=== PATIENT | female | born 1955 | race Caucasian/White ===

== ENCOUNTER 2020-01-19 14:20 | Emergency (ER) | payer MEDICARE, OTHER, SELFPAY ==
--- NOTE | ~2020-01-19 | XR_ITS ---
EXAMINATION: XR wrist RT 2V INDICATION: Right wrist pain TECHNIQUE: Two views of the right wrist are obtained. COMPARISON: None available FINDINGS: Bone alignment of the wrist is normal. There is mild osteoarthritis of the triscaphe and fi rst carpometacarpal joints. A minimally displaced fracture at the base of the fifth metacarpal is not ed. IMPRESSION: 1. No acute osseous abnormality of the wrist. 2. Fifth metacarpal base fracture. Reviewed, dictated and finalized at location A.
--- NOTE | ~2020-01-19 | XR_ITS ---
EXAMINATION: XR hand RT 2V INDICATION: Right hand pain, initial encounter TECHNIQUE: Two views of the right hand are obtained. COMPARISON: None available FINDINGS: There is an acute, traumatic, closed, transverse fracture at the base of the fifth metacarp al which does not appear to involve the articular surface. There is 1 mm of dorsal displacement of th e distal fracture fragment. Soft tissue swelling is seen near the fracture. Mild osteoarthritis is no ruddy at the triscaphe and first metacarpal joints. There is also mild osteoarthritis at several interp halangeal joints. IMPRESSION: 1. Minimally displaced fracture at the base of the fifth metacarpal. Reviewed, dictated and finalized at location A.
[2020-01-19 14:44] VITALS: BP 142/82; PULSE 59; RESP 14; TEMP 36.5; O2SAT 97
[2020-01-19] MEDS: KETOROLAC (*BKC) 60 MG/2 ML VIAL IM (14:56)
--- NOTE | 2020-01-19 15:30 | ED.UPPEXIN ---
HPI - Extremity Injury (Upper) General Chief Complaint: Extremity Injury, Upper Stated Complaint: injury to right hand Source: patient Mode of arrival: ambulatory Limitations: no limitations History of Present Illness HPI narrative: this is a 64-year-old female that presents with a right hand and wrist pain after a fall earlier today on an outstretched hand causing pain and swelling on the ulnar surface of her right hand with some mild decreased range of motion secondary to pain and swelling. Has good range of motion with her fingers, with no numbness, her right radial pulse is strong and brisk to palpation. complaint: injury to: right Onset (ago): hour(s) Other Extremity Injury: Right: hand ( pain with swelling) and wrist Other injuries: none Handedness: right Place: home Severity: moderate Severity scale (1-10): 6 Relieving factors: cold therapy, immobilization and medication Exacerbating factors: movement of extremity Context: fall Associated symptoms: denies other symptoms Related Data Home Medications Medication Instructions Recorded Confirmed amlodipine 2.5 mg PO DAILY 01/19/20 01/19/20 cabergoline 0.5 mg PO WEEKLY 01/19/20 01/19/20 calcium carbonate [Calcium 600] 600 mg PO DAILY 01/19/20 01/19/20 gemfibrozil 600 mg PO BID 01/19/20 01/19/20 insulin asp prt-insulin aspart 16 unit SUBCUT AC 01/19/20 01/19/20 [Novolog Mix 70-30FlexPen U-100] insulin glargine [Lantus U-100 20 unit SUBCUT DAILY 01/19/20 01/19/20 Insulin] lisinopril 20 mg PO DAILY 01/19/20 01/19/20 methimazole 5 mg PO DAILY 01/19/20 01/19/20 omeprazole 20 mg PO DAILY 01/19/20 01/19/20 pravastatin 40 mg PO HS 01/19/20 01/19/20 vitamin B complex [B 1 tablet PO DAILY 01/19/20 01/19/20 Complex-Vitamin B12] Allergies Allergy/AdvReac Type Severity Reaction Status Date / Time No Known Allergies Allergy Unverified 05/22/18 10:17 Review of Systems Review of Systems: All systems reviewed & are unremarkable except as noted in HPI and below PMFSH Past Medical History Medical History Diabetes mellitus HLD (hyperlipidemia) HTN (hypertension) Hypothyroidism (acquired) Exam Const: General: no acute distress and alert Orientation/consciousness: patient oriented x3 HENMT: Head: normal to inspection Ears: TM abnormal Eyes: Conjunctivae: conjunctivae normal Pupils: Equal, round and reactive pupils present Neck: Neck: normal visual inspection and no lymphadenopathy Chest: Chest palpation & inspection: normal inspection of the chest Resp: Effort & Inspection: normal respiratory effort Auscultation: clear to auscultation bilaterally Cardio: Rate: regular rate Rhythm: regular rhythm GI: GI Palp: Yes Soft to palpation Auscultation: normal bowel sounds : General: Yes no CVA tenderness Skin: General skin exam: normal color Rashes: no rashes Neuro: General: patient oriented x3, moves all extremities, no meningeal signs and no focal motor deficits Extrem: Other: Pain and tenderness ulnar aspect of her right hand and risk with a strong brisk radial pulse with no numbness or tingling Psych: Mental Status: mental status grossly normal Course Vital Signs Vital signs: Vital Signs Temperature 36.5 C 01/19/20 14:44 Pulse Rate 59 L 01/19/20 14:44 Respiratory Rate 14 01/19/20 14:44 Blood Pressure 142/82 H 01/19/20 14:44 Pulse Oximetry 97 01/19/20 14:44 Temperature 36.5 C 01/19/20 14:44 Pulse Rate 59 L 01/19/20 14:44 Respiratory Rate 14 01/19/20 14:44 Blood Pressure 142/82 H 01/19/20 14:44 Pulse Oximetry 97 01/19/20 14:44 Critical Care Time Critical Care Time Critical Care Time: No Discharge Plan Discharge Clinical Impression: Fracture of hand Patient Disposition: Home, Self-Care Condition: Stable Instructions: Hand Fracture (ED), Splint Care (ED) Additional Instructions: follow-up with primary care physician within 1
[2020-01-19 15:31] VITALS: PULSE 60; RESP 14; O2SAT 98
--- NOTE | 2020-01-28 11:13 | PC.NURSE ---
01/19/20 1538 right wrist splint applied per ERP verbal order
== END 2020-01-19 15:41 | disposition home or self-care (01) ==
PROVIDERS: Emergency Provider Emergency Medicine; PCP Family Medicine
DX: S62.91XA Unspecified fracture of right hand, initial encounter for closed fracture (principal); W19.XXXA Unspecified fall, initial encounter
CPT/HCPCS: 29125; 73100; 73120; 96372; 99283; 99284; J1885

== ENCOUNTER 2021-12-19 08:12 | Outpatient (CLI) | payer MEDICARE, OTHER, SELFPAY ==
[2021-12-19 09:10] LABS: Thyroid Stimulating Hormone 0.66 uIU/mL (0.36-3.74)
== END 2021-12-19 08:13 | disposition home or self-care (01) ==
LOC: CHSLAB 08:16
PROVIDERS: PCP Family Medicine; Visit Provider Internal Medicine Endocrinology, Diabetes & Metabolism
DX: E03.9 Hypothyroidism, unspecified (principal)
CPT/HCPCS: 36415; 84443

== ENCOUNTER 2022-01-19 08:06 | Outpatient (CLI) | payer MEDICARE, SELFPAY ==
[2022-01-19 09:21] LABS: Free T3 2.66 pg/mL (2.18-3.98); Free T4 Free Thyroxine 1.32 ng/dL (0.76-1.46); Thyroid Stimulating Hormone 1.73 uIU/mL (0.36-3.74)
== END 2022-01-19 08:07 | disposition home or self-care (01) ==
LOC: CHSLAB 08:10
PROVIDERS: PCP Family Medicine; Visit Provider Internal Medicine Endocrinology, Diabetes & Metabolism
DX: E03.8 Other specified hypothyroidism (principal)
CPT/HCPCS: 36415; 84439; 84443; 84481

== ENCOUNTER 2022-05-01 06:56 | Outpatient (CLI) | payer MEDICARE, SELFPAY ==
[2022-05-01 07:17] LABS: Basophils Absolute Auto 0.07 K/mm3 (0.00-0.10); Basophils Percent Auto 1.6 % (0.0-1.0); Eosinophils Absolute Auto 0.41 K/mm3 (0.02-0.50); Eosinophils Percent Auto 9.5 % (1.0-6.0); Hematocrit 40.3 % (35.0-42.0); Hemoglobin 12.9 g/dL (11.7-13.8); Immature Granulocyte Absolute 0.01 K/mm3 (0.00-0.00); Immature Granulocyte Percent A 0.2 % (0.0-0.0); Lymphocytes Absolute Auto 0.97 K/mm3 (1.10-4.50); Lymphocytes Percent Auto 22.4 % (18.0-42.0); Mean Corpuscular Hemoglobin 29.4 pg (27.0-31.0); Mean Corpuscular Volume 91.8 fL (78.0-102.0); Mean Platelet Volume 10.4 fl (9.2-11.8); Monocytes Absolute Auto 0.55 K/mm3 (0.10-0.90); Monocytes Percent Auto 12.7 % (2.0-11.0); Neutrophils Absolute Auto 2.3 K/mm3 (1.7-7.2); Neutrophils Percent Auto 53.6 % (50.0-70.0); Platelet Count Result 222 K/mm3 (150-420); Red Blood Count 4.39 M/mm3 (4.20-5.40); Red Cell Distribution Width 14.2 % (11.6-14.4); White Blood Count 4.3 K/mm3 (4.8-10.8)
[2022-05-01 07:18] LABS: Add Urine Microscopic? YES; Appearance Urine Clear (Clear); Bilirubin Urine Negative (Negative); Blood Urine Negative (Negative); Color Urine Light Yellow (Yellow); Glucose Urine UA 3+ (Negative); Ketones Urine Trace (Negative); Leukocyte Esterase Ur Negative (Negative); Nitrate Urine Negative (Negative); Protein Urine Negative (Negative); Urobilinogen Urine 0.2 mg/dL (0.2-1.0)
[2022-05-01 07:25] LABS: Bacteria Urine None seen /hpf; RBC Urine None seen /hpf (0-2); WBC Urine None seen /hpf (0-3)
[2022-05-01 07:35] LABS: Alanine Aminotransferase 15 U/L (14-59); Albumin Level 3.5 g/dL (3.4-5.0); Alkaline Phosphatase 116 U/L (46-116); Anion Gap 8 mmol/L (8-16); Aspartate Amino Transferase 17 U/L (15-37); Bilirubin,Total 0.4 mg/dL (0.00-1.00); Blood Urea Nitrogen 34 mg/dL (7-18); Calcium 9.3 mg/dL (8.5-10.1); Carbon Dioxide 23 mmol/L (21-32); Chloride 101 mmol/L (98-108); Creatine Kinase 74 U/L (26-192); Estimated Glomerular Filt Rate 47; Glucose 354 mg/dL (70-99); Osmolality Calculated 295 mOsm/kg (285-295); Potassium 4.3 mmol/L (3.5-5.1); Sodium 132 mmol/L (136-145); Total Protein 7.4 g/dL (6.4-8.2)
[2022-05-01 08:16] LABS: Erythrocyte Sedimentation Rate 32 mm/hr (0-20)
[2022-05-04 11:31] LABS: Complement C3 162 mg/dL (83-193)
== END 2022-05-01 06:57 | disposition home or self-care (01) ==
LOC: CHSLAB 07:01
PROVIDERS: PCP Family Medicine
DX: M06.4 Inflammatory polyarthropathy (principal)
CPT/HCPCS: 36415; 80053; 81001; 82550; 85025; 85652; 86160; 86225

== ENCOUNTER 2022-05-11 11:48 | Outpatient (CLI) | payer MEDICARE, OTHER, SELFPAY ==
--- NOTE | ~2022-05-11 | US_ITS ---
EXAMINATION: US retroperitoneal comp DATE: 05/11/2022 12:14 INDICATION: Stage III chronic kidney disease. Prior right nephrectomy. TECHNIQUE: Multiple ultrasound grayscale images of the kidneys were obtained. COMPARISON: None. FINDINGS: The right kidney is not visualized and is reportedly surgically absent. No abnormal masses identified at the right renal fossa although the region is partially obscured by shadowing bowel gas. The left kidney measures 11.5 x 5.5 x 5.6 cm. Left renal cortical echogenicity is normal. No stones identified . There is no hydronephrosis in the left kidney. The bladder is normal. IMPRESSION: 1. Normal left kidney without hydronephrosis. 2. Status post right nephrectomy. Reviewed, dictated and finalized at location A.
== END 2022-05-11 11:49 | disposition home or self-care (01) ==
LOC: CHSIMG 11:49
PROVIDERS: PCP Family Medicine
DX: N18.30 Chronic kidney disease, stage 3 unspecified (principal)
CPT/HCPCS: 76770

== ENCOUNTER 2022-06-08 08:13 | Outpatient (CLI) | payer MEDICARE, SELFPAY ==
[2022-06-08 08:36] LABS: Basophils Absolute Auto 0.07 K/mm3 (0.00-0.10); Basophils Percent Auto 1.6 % (0.0-1.0); Eosinophils Absolute Auto 0.35 K/mm3 (0.02-0.50); Eosinophils Percent Auto 7.8 % (1.0-6.0); Hematocrit 41.5 % (35.0-42.0); Hemoglobin 12.7 g/dL (11.7-13.8); Immature Granulocyte Absolute 0.03 K/mm3 (0.00-0.00); Immature Granulocyte Percent A 0.7 % (0.0-0.0); Lymphocytes Absolute Auto 0.85 K/mm3 (1.10-4.50); Lymphocytes Percent Auto 18.9 % (18.0-42.0); Mean Corpuscular HGB Conc 30.6 g/dL (32.0-36.0); Mean Corpuscular Hemoglobin 28.7 pg (27.0-31.0); Mean Corpuscular Volume 93.9 fL (78.0-102.0); Mean Platelet Volume 10.3 fl (9.2-11.8); Monocytes Absolute Auto 0.61 K/mm3 (0.10-0.90); Monocytes Percent Auto 13.6 % (2.0-11.0); Neutrophils Absolute Auto 2.6 K/mm3 (1.7-7.2); Neutrophils Percent Auto 57.4 % (50.0-70.0); Platelet Count Result 221 K/mm3 (150-420); Red Blood Count 4.42 M/mm3 (4.20-5.40); Red Cell Distribution Width 14.2 % (11.6-14.4); White Blood Count 4.5 K/mm3 (4.8-10.8)
[2022-06-08 09:23] LABS: Alanine Aminotransferase 42 U/L (14-59); Albumin Level 3.7 g/dL (3.4-5.0); Alkaline Phosphatase 82 U/L (46-116); Anion Gap 10 mmol/L (8-16); Aspartate Amino Transferase 37 U/L (15-37); Bilirubin,Total 0.7 mg/dL (0.00-1.00); Blood Urea Nitrogen 22 mg/dL (7-18); Calcium 9.5 mg/dL (8.5-10.1); Carbon Dioxide 24 mmol/L (21-32); Chloride 105 mmol/L (98-108); Estimated Glomerular Filt Rate 56; Glucose 266 mg/dL (70-99); Osmolality Calculated 300 mOsm/kg (285-295); Potassium 4.4 mmol/L (3.5-5.1); Sodium 139 mmol/L (136-145)
== END 2022-06-08 08:14 | disposition home or self-care (01) ==
LOC: CHSLAB 08:19
PROVIDERS: PCP Family Medicine
DX: N18.30 Chronic kidney disease, stage 3 unspecified (principal); D72.819 Decreased white blood cell count, unspecified; M06.4 Inflammatory polyarthropathy
CPT/HCPCS: 36415; 80053; 85025

== ENCOUNTER 2022-06-16 08:26 | Outpatient (CLI) | payer MEDICARE, SELFPAY ==
[2022-06-16 09:15] LABS: Rheumatoid Factor Screen Negative (Negative)
[2022-06-20 09:13] LABS: Anti Cyclic Citrullinated Pept <16 Units (<20)
== END 2022-06-16 08:27 | disposition home or self-care (01) ==
LOC: CHSLAB 08:29
PROVIDERS: PCP Family Medicine
DX: M79.643 Pain in unspecified hand (principal)
CPT/HCPCS: 36415; 86200; 86430

== ENCOUNTER 2022-07-14 09:20 | Outpatient (CLI) | payer MEDICARE, SELFPAY ==
[2022-07-14 09:52] LABS: Rheumatoid Factor Screen Negative (Negative)
== END 2022-07-14 09:21 | disposition home or self-care (01) ==
LOC: CHSLAB 09:23
PROVIDERS: PCP Family Medicine
DX: M79.643 Pain in unspecified hand (principal)
CPT/HCPCS: 36415; 86430

== ENCOUNTER 2022-07-16 03:38 | Emergency (ER) | payer MEDICARE, OTHER, SELFPAY ==
--- NOTE | ~2022-07-16 | XR_ITS ---
EXAMINATION: XR chest 1V portable INDICATION: Chest pain TECHNIQUE: Portable AP chest at 0404 hours COMPARISON: 10/09/2016 FINDINGS: The lungs are free of acute opacities. No pleural effusion or pneumothorax. The cardiomedia stinal silhouette is normal. There is plate and screw fixation of the right clavicle. IMPRESSION: 1. No acute cardiopulmonary abnormality. Reviewed, dictated and finalized at location A. THESIOLOGY FACULTY
--- NOTE | ~2022-07-16 | CT_ITS ---
EXAMINATION: CTA chest PE abdomen pel DATE: 07/16/2022 04:53 INDICATION: Midsternal chest pain and epigastric abdominal pain TECHNIQUE: Computed tomography angiography (CTA) of the chest was performed with 100 mL Omnipaque-350 intravenous contrast timed to evaluate the pulmonary arteries. Subsequent postcontrast images of the abdomen and pelvis are obtained. Coronal maximum intensity projection 3D-reconstructions were create d by the technologist. The dose-length product (DLP) was 924.12 mGy-cm. Automated exposure control an d iterative reconstruction technique were employed. COMPARISON: None. FINDINGS: CTA CHEST: The pulmonary arteries are well-opacified. No pulmonary embolism is identified. There is m ild dependent atelectasis of the lungs. No pleural effusion or pneumothorax. No pathologically enlarg ed thoracic lymph nodes are identified. The heart size is normal. Calcified coronary artery atheroscl erosis is noted. There is plate and screw fixation of the right clavicle. Healed right-sided rib frac tures are noted. There is a burst fracture of T12. ABDOMEN/PELVIS CT: A small sliding hiatal hernia is noted. Stones are present in the gallbladder whic h is mildly distended. There appears to be a stone in the neck of the gallbladder. There are changes of right nephrectomy. The liver, spleen, pancreas, and adrenal glands are normal. There is a 9 mm cys t of the left kidney. No pathologically enlarged abdominal or pelvic lymph nodes are identified. Ther e is no free intraperitoneal gas or evidence of bowel obstruction. There is severe lower lumbar spond ylosis. A fat-containing umbilical hernia is noted. IMPRESSION: 1. No pulmonary embolus. 2. Cholelithiasis with mildly distended gallbladder. Recommend correlation for right upper quadrant p ain. These findings and recommendations were discussed with Dr. Heart in the Emergency Department at 1434 hours on 07/16/2022. Reviewed, dictated and finalized at location A. UTER SECURITY COORDINATOR IMPRESSION: 1. No pulmonary embolus. 2. Cholelithiasis with mildly distended gallbladder. Recommend correlation for right upper quadrant pain. These findings and recommendations were discussed wi th Dr. Heart in the Emergency Department at 1434 hours on 07/16/2022.
[2022-07-16 03:38] VITALS: PULSE 68
--- NOTE | 2022-07-16 03:42 | ECG_ITS ---
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
--- NOTE | 2022-07-16 03:54 | ED.CHESTPAIN ---
HPI - Chest Pain General Chief Complaint: Chest Pain Stated Complaint: CHEST PAIN Source: patient Mode of arrival: ambulatory Limitations: no limitations History of Present Illness HPI narrative: this is a 67-year-old female who presents with some lower chest pain and epigastric discomfort and a fullness that started about 1 in the morning thought it would pass went back to sleep and after couple of hours woke her up again rates the pain about a 8/10 with no shortness of breath does have some nausea with no vomiting no diaphoresis, patient has a history of hypertension and diabetes, not a current smoker, former smoker with family history of heart disease in her mother. Currently there is no shortness of breath no fever chills no diarrhea constipation. MD complaint: chest pain and chest discomfort Onset (ago): hour(s) Timing of current episode: episodic Prior episodes: No Onset: other Pain location: epigastric Pain radiation: none Severity: moderate Pain scale (0-10): 5 Quality: tightness Related Data Home Medications Medication Instructions Recorded Confirmed amlodipine 2.5 mg tablet 2.5 mg PO DAILY 01/19/20 07/16/22 cabergoline 0.5 mg tablet 0.5 mg PO WEEKLY 01/19/20 07/16/22 calcium carbonate 600 mg calcium 600 mg PO DAILY 01/19/20 07/16/22 (1,500 mg) tablet (Calcium) gemfibrozil 600 mg tablet 600 mg PO BID 01/19/20 07/16/22 insulin aspar prot-insulin aspart 16 unit subcut AC 01/19/20 07/16/22 100 unit/mL (70-30) subcutaneous pen (Novolog Mix 70-30FlexPen U-100) insulin glargine 100 unit/mL 20 unit subcut DAILY 01/19/20 07/16/22 subcutaneous solution (Lantus U-100 Insulin) lisinopril 20 mg tablet 20 mg PO DAILY 01/19/20 07/16/22 methimazole 5 mg tablet 5 mg PO DAILY 01/19/20 07/16/22 omeprazole 20 mg capsule,delayed 20 mg PO DAILY 01/19/20 07/16/22 release pravastatin 40 mg tablet 40 mg PO HS 01/19/20 07/16/22 vitamin B complex (B 1 tablet PO DAILY 01/19/20 07/16/22 Complex-Vitamin B12 tablet) Allergies Allergy/AdvReac Type Severity Reaction Status Date / Time No Known Allergies Allergy Unverified 05/22/18 10:17 Review of Systems Review of Systems: All systems reviewed & are unremarkable except as noted in HPI and below PMFSH Past Medical History Medical History (Updated 07/16/22 @ 05:47 by Tommy Fernandez MD) Diabetes mellitus HLD (hyperlipidemia) HTN (hypertension) Hypothyroidism (acquired) Exam Const: General: no acute distress and alert Nutritional Appearance: well nourished Orientation/consciousness: patient oriented x3 Limitations: no limitations HENMT: Head: normal to inspection Face and sinus: normal facial exam Mouth: Yes Normal oral and palatal mucosa present Eyes: Conjunctivae: conjunctivae normal Pupils: Equal, round and reactive pupils present EOM: EOMs intact bilaterally Neck: Neck: normal visual inspection Chest: Chest palpation & inspection: normal inspection of the chest Resp: Effort & Inspection: normal respiratory effort Auscultation: clear to auscultation bilaterally Cardio: Rate: regular rate Rhythm: regular rhythm GI: Auscultation: normal bowel sounds : General: Yes bladder normal to palpation Urinary Catheter: Urinary Catheter: patent and draining Back/Spine/Pelvis: Back: no CVA tenderness Skin: General skin exam: normal color Rashes: no rashes Wounds: no wounds Neuro: General: patient oriented x3 Cranial nerves: Yes Nystagmus not present Speech: normal speech Gait exam (Neuro): Normal gait present Extrem: General: normal to inspection, no clubbing, cyanosis or edema and no pedal edema Psych: Mental Status: mental status grossly normal Course Course Emergency Course: Reassessment of patient significantly improved after Protonix, patient did receive a dose of nitroglycerin which did not affect her epigastric or chest discomfort, did receive morphine that help with pain as well as a GI cocktail. Patient had an lamin
[2022-07-16 03:57] VITALS: BP 194/92; PULSE 98; RESP 20; TEMP 37.2; O2SAT 98
[2022-07-16 03:57] LABS: Hematocrit 41.5 % (35.0-42.0); Hemoglobin 12.9 g/dL (11.7-13.8); Mean Corpuscular HGB Conc 31.1 g/dL (32.0-36.0); Mean Corpuscular Hemoglobin 29.5 pg (27.0-31.0); Mean Corpuscular Volume 94.7 fL (78.0-102.0); Mean Platelet Volume 10.5 fl (9.2-11.8); Platelet Count Result 239 K/mm3 (150-420); Red Blood Count 4.38 M/mm3 (4.20-5.40); Red Cell Distribution Width 13.2 % (11.6-14.4)
[2022-07-16] MEDS: MAG HYDROX/ALUMINUM HYD/SIMETH 30 ML, PHENobarb/HYOSCY/ATROPINE/SCOP 32.4 MG, LIDOCAINE... PO (04:01)
[2022-07-16] MEDS: ONDANSETRON INJ 4 MG/2 ML VIAL IV PUSH (04:02)
[2022-07-16] MEDS: SODIUM CHLORIDE 0.9% IV 500 ML 999 ML IV CONT (04:02)
[2022-07-16 04:18] LABS: INR 0.9; Partial Thromboplastin Time 29.4 SEC (23.90-30.70); Prothrombin Time 10.3 Seconds (9.50-12.10)
[2022-07-16] MEDS: NITROGLYCERIN SL 0.4 MG TABLET SUBLINGUAL (04:18)
[2022-07-16 04:20] VITALS: BP 180/90; PULSE 62; RESP 20; O2SAT 97
[2022-07-16 04:28] LABS: Alanine Aminotransferase 18 U/L (14-59); Albumin Level 3.6 g/dL (3.4-5.0); Alkaline Phosphatase 97 U/L (46-116); Anion Gap 10 mmol/L (8-16); Aspartate Amino Transferase 14 U/L (15-37); Bilirubin,Total 0.3 mg/dL (0.00-1.00); Blood Urea Nitrogen 32 mg/dL (7-18); Calcium 9.6 mg/dL (8.5-10.1); Carbon Dioxide 23 mmol/L (21-32); Chloride 104 mmol/L (98-108); Estimated Glomerular Filt Rate 49; Glucose 242 mg/dL (70-99); Osmolality Calculated 298 mOsm/kg (285-295); Potassium 4.3 mmol/L (3.5-5.1); Sodium 137 mmol/L (136-145); Total Protein 7.9 g/dL (6.4-8.2)
[2022-07-16 04:28] LABS: D Dimer 0.84 mg/L (0.19-0.50)
[2022-07-16 04:30] LABS: Lipase 129 U/L (73-393); NT Pro B Type Natriuretic Pept 54 pg/mL (0-125); Troponin I 11.2 ng/L (0.00-60.4)
[2022-07-16 04:30] LABS: CRP 1.9 mg/dL (0.0-0.9)
[2022-07-16] MEDS: MORPHINE SULFATE (*CRX) 4 MG/ML INJ IM (04:32)
[2022-07-16] MEDS: PANTOPRAZOLE SODIUM IV 40 MG VIAL 80 MG IV PUSH (04:32)
[2022-07-16 04:40] VITALS: BP 179/88; PULSE 66; RESP 16; O2SAT 99
[2022-07-16 04:54] LABS: Band Neutrophils Percent 0 % (0-6); Neutrophils Absolute Manual 1.16 K/mm3 (1.7-7.2); Neutrophils Percent Manual 29 % (46-73); Total Cells Counted 100
[2022-07-16 04:55] LABS: Basophils Absolute Manual 0.24 K/mm3 (0-0.1); Basophils Percent Manual 6 % (0-1); Eosinophils Absolute Manual 0.52 K/mm3 (0.02-0.5); Eosinophils Percent Manual 13 % (1-6); Large Platelets Present; Lymphocytes Absolute Manual 1.64 K/mm3 (1.1-4.5); Lymphocytes Percent Manual 41 % (18-44); Monocytes Absolute Manual 0.44 K/mm3 (0.1-0.90); Monocytes Percent Manual 11 % (3-9); Platelet Clumps Present; Platelet Estimate Adequate (Adequate); Schistocytes None Seen (NORMAL)
[2022-07-16 05:11] LABS: Appearance Urine Clear (Clear); Bilirubin Urine Negative (Negative); Blood Urine Negative (Negative); Glucose Urine UA 2+ (Negative); Ketones Urine Negative (Negative); Leukocyte Esterase Ur Negative LEU/UL (Negative); Nitrate Urine Negative (Negative); Protein Urine Negative (Negative); Specific Grav Ur 1.015 (1.010-1.020); Urobilinogen Urine 0.2 mg/dL (0.2-1.0)
[2022-07-16 05:17] LABS: Add Urine Microscopic? YES; Color Urine Light Yellow (Yellow); RBC Urine None seen /hpf (0-2); Squamous Epithelial Cell Urine None seen /hpf (Few); WBC Urine None seen /hpf (0-3)
[2022-07-16 05:20] VITALS: BP 154/70; PULSE 74; RESP 18; TEMP 37.2; O2SAT 97
[2022-07-16 05:48] VITALS: BP 140/90; PULSE 68; RESP 16; TEMP 36.6; O2SAT 96
== END 2022-07-16 05:58 | disposition home or self-care (01) ==
PROVIDERS: Emergency Provider Emergency Medicine
DX: R07.89 Other chest pain (principal); K44.9 Diaphragmatic hernia without obstruction or gangrene; K29.00 Acute gastritis without bleeding; E11.9 Type 2 diabetes mellitus without complications; E78.5 Hyperlipidemia, unspecified; I10 Essential (primary) hypertension; E03.9 Hypothyroidism, unspecified
CPT/HCPCS: 36415; 71045; 71275; 74177; 80053; 81001; 83605; 83690; 83880; 84484; 85025; 85380; 85610; 85730; 86140; 93005; 96361; 96372; 96374; 96375; 99284; A9270; C9113; J2270; J2405; J7040; Q9967

== ENCOUNTER 2022-08-17 08:18 | Outpatient (CLI) | payer MEDICARE, SELFPAY ==
[2022-08-17 08:40] LABS: Hematocrit 40.2 % (35.0-42.0); Hemoglobin 12.7 g/dL (11.7-13.8); Mean Corpuscular HGB Conc 31.6 g/dL (32.0-36.0); Mean Corpuscular Hemoglobin 29.5 pg (27.0-31.0); Mean Corpuscular Volume 93.3 fL (78.0-102.0); Mean Platelet Volume 10.8 fl (9.2-11.8); Platelet Count Result 223 K/mm3 (150-420); Red Blood Count 4.31 M/mm3 (4.20-5.40); Red Cell Distribution Width 13.5 % (11.6-14.4); White Blood Count 3.3 K/mm3 (4.8-10.8)
[2022-08-17 09:00] LABS: Band Neutrophils Percent 0 % (0-6); Eosinophils Absolute Manual 0.13 K/mm3 (0.02-0.5); Eosinophils Percent Manual 4 % (1-6); Lymphocytes Absolute Manual 0.89 K/mm3 (1.1-4.5); Lymphocytes Percent Manual 27 % (18-44); Monocytes Absolute Manual 0.56 K/mm3 (0.1-0.90); Monocytes Percent Manual 17 % (3-9); Neutrophils Absolute Manual 1.71 K/mm3 (1.7-7.2); Neutrophils Percent Manual 52 % (46-73); Platelet Estimate Adequate (Adequate); Total Cells Counted 100
[2022-08-17 09:12] LABS: Alanine Aminotransferase 18 U/L (14-59); Albumin Level 3.8 g/dL (3.4-5.0); Alkaline Phosphatase 93 U/L (46-116); Anion Gap 7 mmol/L (8-16); Aspartate Amino Transferase 19 U/L (15-37); Bilirubin,Total 0.5 mg/dL (0.00-1.00); Blood Urea Nitrogen 22 mg/dL (7-18); CRP 1.2 mg/dL (0.0-0.9); Calcium 9.8 mg/dL (8.5-10.1); Carbon Dioxide 26 mmol/L (21-32); Chloride 103 mmol/L (98-108); Estimated Glomerular Filt Rate 58; Glucose 193 mg/dL (70-99); Osmolality Calculated 290 mOsm/kg (285-295); Potassium 4.6 mmol/L (3.5-5.1); Sodium 136 mmol/L (136-145); Total Protein 7.3 g/dL (6.4-8.2)
[2022-08-17 09:46] LABS: Erythrocyte Sedimentation Rate 38 mm/hr (0-20)
[2022-08-23 19:30] LABS: Hepatitis B Core Ab Total Nonreactive (Nonreactive)
[2022-08-23 19:33] LABS: Hepatitis B Surface Antigen Nonreactive (Nonreactive); Hepatitis C Signal to Cutoff 0.02 ratio (<1.00); Hepatitis C Virus Antibody Nonreactive (Nonreactive)
== END 2022-08-17 08:19 | disposition home or self-care (01) ==
LOC: CHSLAB 08:22
PROVIDERS: PCP Family Medicine
DX: Z79.899 Other long term (current) drug therapy (principal)
CPT/HCPCS: 36415; 80053; 85025; 85652; 86140; 86704

== ENCOUNTER 2022-09-22 08:01 | Outpatient (CLI) | payer MEDICARE, SELFPAY ==
[2022-09-22 08:13] LABS: Hemoglobin 12.9 g/dL (11.7-13.8); Mean Corpuscular HGB Conc 31.5 g/dL (32.0-36.0); Mean Corpuscular Hemoglobin 29.3 pg (27.0-31.0); Mean Platelet Volume 10.5 fl (9.2-11.8); Platelet Count Result 226 K/mm3 (150-420); Red Blood Count 4.41 M/mm3 (4.20-5.40); White Blood Count 3.8 K/mm3 (4.8-10.8)
[2022-09-22 08:58] LABS: Band Neutrophils Percent 0 % (0-6); Basophils Absolute Manual 0.03 K/mm3 (0-0.1); Basophils Percent Manual 1 % (0-1); Eosinophils Absolute Manual 0.38 K/mm3 (0.02-0.5); Eosinophils Percent Manual 10 % (1-6); Lymphocytes Absolute Manual 1.25 K/mm3 (1.1-4.5); Lymphocytes Percent Manual 33 % (18-44); Monocytes Absolute Manual 0.49 K/mm3 (0.1-0.90); Monocytes Percent Manual 13 % (3-9); Neutrophils Absolute Manual 1.63 K/mm3 (1.7-7.2); Neutrophils Percent Manual 43 % (46-73); Platelet Estimate Adequate (Adequate); Total Cells Counted 100
== END 2022-09-22 08:02 | disposition home or self-care (01) ==
LOC: CHSLAB 08:04
PROVIDERS: PCP Family Medicine
DX: Z79.899 Other long term (current) drug therapy (principal)
CPT/HCPCS: 36415; 85025

== ENCOUNTER 2022-10-09 08:11 | Outpatient (CLI) | payer MEDICARE, SELFPAY ==
[2022-10-09 09:18] LABS: Free T4 Free Thyroxine 1.15 ng/dL (0.76-1.46); Thyroid Stimulating Hormone 0.81 uIU/mL (0.36-3.74)
[2022-10-11 13:31] LABS: Growth Hormone ICMA 0.7 ng/mL (<=7.1)
[2022-10-12 17:23] LABS: Vitamin D 25 Hydroxy 18 ng/mL (30-100)
[2022-10-17 10:27] LABS: Z Score Female 0.4 SD (-2.0 - +2.0)
== END 2022-10-09 08:12 | disposition home or self-care (01) ==
LOC: CHSLAB 08:13
PROVIDERS: PCP Family Medicine; Visit Provider Internal Medicine Endocrinology, Diabetes & Metabolism
DX: E55.9 Vitamin D deficiency, unspecified (principal); E22.0 Acromegaly and pituitary gigantism; E03.8 Other specified hypothyroidism
CPT/HCPCS: 36415; 82306; 83003; 84305; 84439; 84443

== ENCOUNTER 2022-11-06 07:27 | Outpatient (CLI) | payer MEDICARE, SELFPAY ==
[2022-11-06 07:56] LABS: Basophils Absolute Auto 0.04 K/mm3 (0.00-0.10); Eosinophils Absolute Auto 0.36 K/mm3 (0.02-0.50); Eosinophils Percent Auto 8.8 % (1.0-6.0); Hematocrit 40.4 % (35.0-42.0); Immature Granulocyte Absolute 0.01 K/mm3 (0.00-0.00); Immature Granulocyte Percent A 0.2 % (0.0-0.0); Lymphocytes Absolute Auto 1.02 K/mm3 (1.10-4.50); Lymphocytes Percent Auto 25.1 % (18.0-42.0); Mean Corpuscular HGB Conc 32.2 g/dL (32.0-36.0); Mean Corpuscular Volume 93.1 fL (78.0-102.0); Monocytes Absolute Auto 0.47 K/mm3 (0.10-0.90); Monocytes Percent Auto 11.5 % (2.0-11.0); Neutrophils Absolute Auto 2.2 K/mm3 (1.7-7.2); Neutrophils Percent Auto 53.4 % (50.0-70.0); Platelet Count Result 251 K/mm3 (150-420); Red Blood Count 4.34 M/mm3 (4.20-5.40); Red Cell Distribution Width 14.3 % (11.6-14.4); White Blood Count 4.1 K/mm3 (4.8-10.8)
== END 2022-11-06 07:28 | disposition home or self-care (01) ==
LOC: CHSLAB 07:30
PROVIDERS: PCP Family Medicine
DX: M19.90 Unspecified osteoarthritis, unspecified site (principal); Z79.899 Other long term (current) drug therapy
CPT/HCPCS: 36415; 85025

== ENCOUNTER 2022-12-13 07:11 | Outpatient (CLI) | payer MEDICARE, SELFPAY ==
[2022-12-13 07:27] LABS: Hematocrit 39.7 % (35.0-42.0); Hemoglobin 12.6 g/dL (11.7-13.8); Mean Corpuscular HGB Conc 31.7 g/dL (32.0-36.0); Mean Corpuscular Hemoglobin 30.1 pg (27.0-31.0); Mean Platelet Volume 9.9 fl (9.2-11.8); Platelet Count Result 240 K/mm3 (150-420); Red Blood Count 4.18 M/mm3 (4.20-5.40); Red Cell Distribution Width 13.5 % (11.6-14.4); White Blood Count 4.8 K/mm3 (4.8-10.8)
[2022-12-13 07:43] LABS: Band Neutrophils Percent 0 % (0-6); Eosinophils Absolute Manual 0.52 K/mm3 (0.02-0.5); Eosinophils Percent Manual 11 % (1-6); Lymphocytes Absolute Manual 1.96 K/mm3 (1.1-4.5); Lymphocytes Percent Manual 41 % (18-44); Monocytes Absolute Manual 0.67 K/mm3 (0.1-0.90); Monocytes Percent Manual 14 % (3-9); Neutrophils Absolute Manual 1.63 K/mm3 (1.7-7.2); Neutrophils Percent Manual 34 % (46-73); Platelet Estimate Adequate (Adequate); Total Cells Counted 100
[2022-12-13 08:15] LABS: Alanine Aminotransferase 11 U/L (14-59); Albumin Level 3.8 g/dL (3.4-5.0); Alkaline Phosphatase 98 U/L (46-116); Anion Gap 8 mmol/L (8-16); Aspartate Amino Transferase 21 U/L (15-37); Bilirubin,Total 0.4 mg/dL (0.00-1.00); Blood Urea Nitrogen 23 mg/dL (7-18); CRP < 0.5 mg/dL (0.0-0.9); Calcium 9.4 mg/dL (8.5-10.1); Carbon Dioxide 28 mmol/L (21-32); Chloride 104 mmol/L (98-108); Estimated Glomerular Filt Rate 58; Glucose 173 mg/dL (70-99); Osmolality Calculated 297 mOsm/kg (285-295); Sodium 140 mmol/L (136-145); Total Protein 7.3 g/dL (6.4-8.2)
[2022-12-13 08:31] LABS: Erythrocyte Sedimentation Rate 30 mm/hr (0-20)
== END 2022-12-13 07:12 | disposition home or self-care (01) ==
LOC: CHSLAB 07:17
PROVIDERS: PCP Family Medicine
DX: Z79.899 Other long term (current) drug therapy (principal)
CPT/HCPCS: 36415; 80053; 85025; 85652; 86140

== ENCOUNTER 2023-03-07 07:15 | Outpatient (CLI) | payer MEDICARE, SELFPAY ==
[2023-03-07 07:33] LABS: Hematocrit 40.1 % (35.0-42.0); Hemoglobin 12.7 g/dL (11.7-13.8); Mean Corpuscular HGB Conc 31.7 g/dL (32.0-36.0); Mean Corpuscular Hemoglobin 31.2 pg (27.0-31.0); Mean Corpuscular Volume 98.5 fL (78.0-102.0); Mean Platelet Volume 10.2 fl (9.2-11.8); Platelet Count Result 256 K/mm3 (150-420); Red Blood Count 4.07 M/mm3 (4.20-5.40); Red Cell Distribution Width 13.2 % (11.6-14.4); White Blood Count 4.5 K/mm3 (4.8-10.8)
[2023-03-07 07:56] LABS: Band Neutrophils Percent 0 % (0-6); Eosinophils Percent Manual 9 % (1-6); Lymphocytes Absolute Manual 1.35 K/mm3 (1.1-4.5); Lymphocytes Percent Manual 30 % (18-44); Monocytes Absolute Manual 0.72 K/mm3 (0.1-0.90); Monocytes Percent Manual 16 % (3-9); Neutrophils Absolute Manual 2.02 K/mm3 (1.7-7.2); Neutrophils Percent Manual 45 % (46-73); Platelet Estimate Adequate (Adequate); Total Cells Counted 100
[2023-03-07 07:58] LABS: Albumin Level 3.7 g/dL (3.4-5.0); Anion Gap 10 mmol/L (8-16); Blood Urea Nitrogen 37 mg/dL (7-18); Calcium 9.6 mg/dL (8.5-10.1); Carbon Dioxide 25 mmol/L (21-32); Chloride 105 mmol/L (98-108); Estimated Glomerular Filt Rate 53; Glucose 195 mg/dL (70-99); Osmolality Calculated 303 mOsm/kg (285-295); Phosphorus 4.9 mg/dL (2.6-4.7); Potassium 4.6 mmol/L (3.5-5.1); Sodium 140 mmol/L (136-145)
[2023-03-07 09:59] LABS: Appearance Urine Clear (Clear); Bilirubin Urine Negative (Negative); Blood Urine Negative (Negative); Color Urine Light Yellow (Yellow); Glucose Urine UA Negative (Negative); Ketones Urine Negative (Negative); Leukocyte Esterase Ur Negative (Negative); Nitrate Urine Negative (Negative); Protein Urine Negative (Negative); Urobilinogen Urine 0.2 mg/dL (0.2-1.0)
[2023-03-07 10:04] LABS: Creatinine Urine 82.48 mg/dL (40-278); MALB Creatinine Ratio 20.2 mg/g (0-30); Microalbumin Urine Random 16.7 mg/L
[2023-03-07 10:12] LABS: Add Urine Microscopic? NO
== END 2023-03-07 07:16 | disposition home or self-care (01) ==
LOC: CHSLAB 07:19
PROVIDERS: PCP Family Medicine
DX: N18.30 Chronic kidney disease, stage 3 unspecified (principal); I10 Essential (primary) hypertension; D63.1 Anemia in chronic kidney disease; R80.9 Proteinuria, unspecified
CPT/HCPCS: 36415; 80069; 81003; 82043; 85025; 87086

== ENCOUNTER 2023-03-21 07:41 | Outpatient (CLI) | payer MEDICARE, SELFPAY ==
[2023-03-21 08:39] LABS: Free T4 Free Thyroxine 1.04 ng/dL (0.76-1.46)
[2023-03-24 11:58] LABS: Growth Hormone ICMA 0.8 ng/mL (<=7.1)
[2023-04-04 08:09] LABS: IGFBP-1 28
== END 2023-03-21 07:42 | disposition home or self-care (01) ==
LOC: CHSLAB 07:43
PROVIDERS: PCP Family Medicine; Visit Provider Internal Medicine Endocrinology, Diabetes & Metabolism
DX: E03.8 Other specified hypothyroidism (principal)
CPT/HCPCS: 36415; 83003; 84439; 84443

== ENCOUNTER 2023-04-23 08:12 | Outpatient (CLI) | payer MEDICARE, SELFPAY ==
[2023-04-23 08:46] LABS: Basophils Absolute Auto 0.06 K/mm3 (0.00-0.10); Basophils Percent Auto 1.3 % (0.0-1.0); Eosinophils Absolute Auto 0.32 K/mm3 (0.02-0.50); Eosinophils Percent Auto 6.9 % (1.0-6.0); Hematocrit 41.2 % (35.0-42.0); Immature Granulocyte Absolute 0.02 K/mm3 (0.00-0.00); Immature Granulocyte Percent A 0.4 % (0.0-0.0); Lymphocytes Absolute Auto 0.88 K/mm3 (1.10-4.50); Mean Corpuscular HGB Conc 31.6 g/dL (32.0-36.0); Mean Corpuscular Hemoglobin 30.4 pg (27.0-31.0); Mean Corpuscular Volume 96.5 fL (78.0-102.0); Mean Platelet Volume 10.5 fl (9.2-11.8); Monocytes Absolute Auto 0.56 K/mm3 (0.10-0.90); Monocytes Percent Auto 12.1 % (2.0-11.0); Neutrophils Absolute Auto 2.8 K/mm3 (1.7-7.2); Neutrophils Percent Auto 60.3 % (50.0-70.0); Platelet Count Result 254 K/mm3 (150-420); Red Blood Count 4.27 M/mm3 (4.20-5.40); Red Cell Distribution Width 12.5 % (11.6-14.4); White Blood Count 4.6 K/mm3 (4.8-10.8)
[2023-04-23 09:13] LABS: Alanine Aminotransferase 11 U/L (14-59); Albumin Level 3.8 g/dL (3.4-5.0); Alkaline Phosphatase 94 U/L (46-116); Anion Gap 10 mmol/L (8-16); Aspartate Amino Transferase 13 U/L (15-37); Bilirubin,Total 0.5 mg/dL (0.00-1.00); Blood Urea Nitrogen 19 mg/dL (7-18); CRP 0.6 mg/dL (0.0-0.9); Calcium 9.8 mg/dL (8.5-10.1); Carbon Dioxide 26 mmol/L (21-32); Chloride 105 mmol/L (98-108); Estimated Glomerular Filt Rate 58; Glucose 148 mg/dL (70-99); Osmolality Calculated 297 mOsm/kg (285-295); Potassium 4.7 mmol/L (3.5-5.1); Sodium 141 mmol/L (136-145); Total Protein 7.2 g/dL (6.4-8.2)
[2023-04-23 09:46] LABS: Erythrocyte Sedimentation Rate 32 mm/hr (0-20)
== END 2023-04-23 08:13 | disposition home or self-care (01) ==
LOC: CHSLAB 08:14
PROVIDERS: PCP Family Medicine; Visit Provider Internal Medicine Rheumatology
DX: M06.09 Rheumatoid arthritis without rheumatoid factor, multiple sites (principal); Z79.899 Other long term (current) drug therapy
CPT/HCPCS: 36415; 80053; 85025; 85652; 86140

== ENCOUNTER 2023-09-05 09:10 | Outpatient (CLI) | payer MEDICARE, SELFPAY ==
[2023-09-05 09:28] LABS: Basophils Absolute Auto 0.06 K/mm3 (0.00-0.10); Basophils Percent Auto 1.5 % (0.0-1.0); Eosinophils Absolute Auto 0.31 K/mm3 (0.02-0.50); Eosinophils Percent Auto 7.7 % (1.0-6.0); Hematocrit 40.9 % (35.0-42.0); Immature Granulocyte Absolute 0.02 K/mm3 (0.00-0.00); Immature Granulocyte Percent A 0.5 % (0.0-0.0); Lymphocytes Percent Auto 14.9 % (18.0-42.0); Mean Corpuscular HGB Conc 31.8 g/dL (32.0-36.0); Mean Corpuscular Hemoglobin 30.7 pg (27.0-31.0); Mean Corpuscular Volume 96.5 fL (78.0-102.0); Monocytes Absolute Auto 0.58 K/mm3 (0.10-0.90); Monocytes Percent Auto 14.4 % (2.0-11.0); Neutrophils Absolute Auto 2.5 K/mm3 (1.7-7.2); Platelet Count Result 243 K/mm3 (150-420); Red Blood Count 4.24 M/mm3 (4.20-5.40); Red Cell Distribution Width 12.4 % (11.6-14.4)
[2023-09-05 09:40] LABS: Appearance Urine Clear (Clear); Bilirubin Urine Negative (Negative); Blood Urine Negative (Negative); Color Urine Light Yellow (Yellow); Glucose Urine UA Negative (Negative); Ketones Urine Negative (Negative); Leukocyte Esterase Ur Negative LEU/UL (Negative); Nitrate Urine Negative (Negative); Protein Urine Negative (Negative); Specific Grav Ur >= 1.030 (1.010-1.020); Urobilinogen Urine 0.2 mg/dL (0.2-1.0)
[2023-09-05 09:43] LABS: Creatinine Urine 173.54 mg/dL (40-278); Total Protein Urine Random 47.7 mg/dL (0.0-11.9); Ur Ttl Prot Creatinine Ratio 0.27 mg/mg (0-0.20)
[2023-09-05 09:47] LABS: Add Urine Microscopic? NO
[2023-09-05 10:11] LABS: Anion Gap 8 mmol/L (8-16); Blood Urea Nitrogen 23 mg/dL (7-18); Calcium 9.6 mg/dL (8.5-10.1); Carbon Dioxide 29 mmol/L (21-32); Chloride 105 mmol/L (98-108); Estimated Glomerular Filt Rate 45; Glucose 190 mg/dL (70-99); Osmolality Calculated 302 mOsm/kg (285-295); Phosphorus 4.6 mg/dL (2.6-4.7); Sodium 142 mmol/L (136-145)
[2023-09-07 12:25] LABS: Vitamin D 25 Hydroxy 53 ng/mL (30-100)
[2023-09-09 21:25] LABS: Parathyroid Intact 27 pg/mL (14-64)
== END 2023-09-05 09:11 | disposition home or self-care (01) ==
LOC: CHSLAB 09:15
PROVIDERS: PCP Family Medicine
DX: N18.30 Chronic kidney disease, stage 3 unspecified (principal)
CPT/HCPCS: 36415; 80069; 81003; 82306; 82570; 83970; 84156; 85025

== ENCOUNTER 2023-10-16 08:05 | Outpatient (CLI) | payer MEDICARE, SELFPAY ==
[2023-10-16 09:02] LABS: Anion Gap 9 mmol/L (8-16); Blood Urea Nitrogen 21 mg/dL (7-18); Calcium 9.6 mg/dL (8.5-10.1); Carbon Dioxide 27 mmol/L (21-32); Chloride 105 mmol/L (98-108); Estimated Glomerular Filt Rate > 60; Glucose 176 mg/dL (70-99); Osmolality Calculated 299 mOsm/kg (285-295); Potassium 4.3 mmol/L (3.5-5.1); Sodium 141 mmol/L (136-145)
== END 2023-10-16 08:06 | disposition home or self-care (01) ==
LOC: CHSLAB 08:08
PROVIDERS: PCP Nurse Practitioner; Visit Provider Internal Medicine Rheumatology
DX: Z79.899 Other long term (current) drug therapy (principal)
CPT/HCPCS: 36415; 80048

== ENCOUNTER 2024-02-07 07:30 | Outpatient (CLI) | payer MEDICARE, SELFPAY ==
[2024-02-07 07:41] LABS: Basophils Absolute Auto 0.04 K/mm3 (0.00-0.10); Basophils Percent Auto 0.9 % (0.0-1.0); Eosinophils Absolute Auto 0.18 K/mm3 (0.02-0.50); Eosinophils Percent Auto 4.2 % (1.0-6.0); Hematocrit 41.5 % (35.0-42.0); Immature Granulocyte Absolute 0.01 K/mm3 (0.00-0.00); Immature Granulocyte Percent A 0.2 % (0.0-0.0); Lymphocytes Absolute Auto 0.69 K/mm3 (1.10-4.50); Lymphocytes Percent Auto 16.3 % (18.0-42.0); Mean Corpuscular HGB Conc 31.3 g/dL (32-36); Mean Corpuscular Hemoglobin 29.6 pg (27.0-31.0); Mean Corpuscular Volume 94.5 fL (78.0-102.0); Mean Platelet Volume 10.2 fl (9.2-11.8); Monocytes Percent Auto 11.8 % (2.0-11.0); Neutrophils Absolute Auto 2.82 K/mm3 (1.70-7.20); Neutrophils Percent Auto 66.6 % (50.0-70.0); Platelet Count Result 248 K/mm3 (150-420); Red Blood Count 4.39 M/mm3 (4.20-5.40); Red Cell Distribution Width 12.7 % (11.6-14.4); White Blood Count 4.2 K/mm3 (4.8-10.8)
[2024-02-07 08:09] LABS: Albumin Level 3.6 g/dL (3.4-5.0); Alkaline Phosphatase 105 U/L (46-116); Anion Gap 12 mmol/L (4-12); Aspartate Amino Transferase 16 U/L (15-37); Bilirubin,Total 0.4 mg/dL (0.00-1.00); Blood Urea Nitrogen 24 mg/dL (7-18); CRP 1.1 mg/dL (0.0-0.9); Calcium 9.5 mg/dL (8.5-10.1); Carbon Dioxide 26 mmol/L (21-32); Chloride 105 mmol/L (98-108); Estimated Glomerular Filt Rate 55; Glucose 226 mg/dL (70-99); Osmolality Calculated 307 mOsm/kg (285-295); Sodium 143 mmol/L (136-145)
[2024-02-07 08:32] LABS: Alanine Aminotransferase 18 U/L (14-59)
[2024-02-07 08:54] LABS: Erythrocyte Sedimentation Rate 40 mm/hr (0-20)
== END 2024-02-07 07:31 | disposition home or self-care (01) ==
LOC: CHSLAB 07:32
PROVIDERS: PCP Nurse Practitioner; Visit Provider Internal Medicine Rheumatology
DX: Z79.899 Other long term (current) drug therapy (principal)
CPT/HCPCS: 36415; 80053; 85025; 85652; 86140

== ENCOUNTER 2024-03-03 07:43 | Outpatient (CLI) | payer MEDICARE, SELFPAY ==
[2024-03-03 08:03] LABS: Basophils Absolute Auto 0.07 K/mm3 (0.00-0.10); Basophils Percent Auto 1.3 % (0.0-1.0); Eosinophils Absolute Auto 0.34 K/mm3 (0.02-0.50); Eosinophils Percent Auto 6.5 % (1.0-6.0); Hematocrit 39.5 % (35.0-42.0); Hemoglobin 12.8 g/dL (11.7-13.8); Immature Granulocyte Absolute 0.02 K/mm3 (0.00-0.00); Immature Granulocyte Percent A 0.4 % (0.0-0.0); Lymphocytes Absolute Auto 0.76 K/mm3 (1.10-4.50); Lymphocytes Percent Auto 14.6 % (18.0-42.0); Mean Corpuscular HGB Conc 32.4 g/dL (32-36); Mean Corpuscular Hemoglobin 30.1 pg (27.0-31.0); Mean Corpuscular Volume 92.9 fL (78.0-102.0); Monocytes Absolute Auto 0.69 K/mm3 (0.10-0.90); Monocytes Percent Auto 13.3 % (2.0-11.0); Neutrophils Absolute Auto 3.32 K/mm3 (1.70-7.20); Neutrophils Percent Auto 63.9 % (50.0-70.0); Platelet Count Result 222 K/mm3 (150-420); Red Blood Count 4.25 M/mm3 (4.20-5.40); Red Cell Distribution Width 12.9 % (11.6-14.4); White Blood Count 5.2 K/mm3 (4.8-10.8)
[2024-03-03 08:38] LABS: Albumin Level 3.4 g/dL (3.4-5.0); Anion Gap 11 mmol/L (4-12); Blood Urea Nitrogen 23 mg/dL (7-18); Calcium 9.6 mg/dL (8.5-10.1); Carbon Dioxide 23 mmol/L (21-32); Chloride 104 mmol/L (98-108); Estimated Glomerular Filt Rate > 60; Glucose 208 mg/dL (70-99); Osmolality Calculated 295 mOsm/kg (285-295); Phosphorus 3.7 mg/dL (2.6-4.7); Potassium 4.4 mmol/L (3.5-5.1); Sodium 138 mmol/L (136-145)
[2024-03-03 10:27] LABS: Appearance Urine Clear (Clear); Bilirubin Urine Negative (Negative); Blood Urine Negative (Negative); Color Urine Light Yellow (Yellow); Glucose Urine UA Trace (Negative); Ketones Urine Negative (Negative); Leukocyte Esterase Ur Trace (Negative); Nitrate Urine Negative (Negative); Protein Urine Negative (Negative); Urobilinogen Urine 0.2 mg/dL (0.2-1.0); pH Urine 5.5 (5.0-8.0)
[2024-03-03 10:32] LABS: Creatinine Urine 83.54 mg/dL (40-278); Total Protein Urine Random 25.7 mg/dL (0.0-11.9); Ur Ttl Prot Creatinine Ratio 0.31 mg/mg (0-0.20)
[2024-03-03 10:35] LABS: Add Urine Microscopic? YES; Bacteria Urine None seen /hpf; RBC Urine Noted /hpf (0-2); Squamous Epithelial Cell Urine Few /hpf (Few); WBC Clumps Urine Present /hpf; WBC Urine 0-3 /hpf (0-3)
[2024-03-03 10:36] LABS: Mucus Urine None seen /lpf
== END 2024-03-03 07:44 | disposition home or self-care (01) ==
LOC: CHSLAB 07:46
PROVIDERS: PCP Nurse Practitioner
DX: N18.30 Chronic kidney disease, stage 3 unspecified (principal); R82.90 Unspecified abnormal findings in urine
CPT/HCPCS: 36415; 80069; 81001; 82570; 84156; 85025; 87086; 87088

== ENCOUNTER 2024-03-31 07:00 | Outpatient (CLI) | payer MEDICARE, SELFPAY ==
[2024-03-31 08:13] LABS: Free T4 Free Thyroxine 1.25 ng/dL (0.76-1.46); Thyroid Stimulating Hormone 2.52 uIU/mL (0.36-3.74)
[2024-04-02 13:28] LABS: Growth Hormone ICMA 0.3 ng/mL (< OR = 7.1)
[2024-04-06 14:43] LABS: Z Score Female 0.4 SD (-2.0 - +2.0)
== END 2024-03-31 07:01 | disposition home or self-care (01) ==
LOC: CHSLAB 07:03
PROVIDERS: PCP Nurse Practitioner; Visit Provider Internal Medicine Endocrinology, Diabetes & Metabolism
DX: E03.8 Other specified hypothyroidism (principal); E22.0 Acromegaly and pituitary gigantism
CPT/HCPCS: 36415; 83003; 84305; 84439; 84443

== ENCOUNTER 2024-06-02 07:57 | Outpatient (CLI) | payer MEDICARE, SELFPAY ==
[2024-06-02 08:11] LABS: Hematocrit 41.5 % (35.0-42.0); Hemoglobin 13.4 g/dL (11.7-13.8); Mean Corpuscular HGB Conc 32.3 g/dL (32-36); Mean Corpuscular Hemoglobin 29.9 pg (27.0-31.0); Mean Corpuscular Volume 92.6 fL (78.0-102.0); Mean Platelet Volume 10.1 fl (9.2-11.8); Platelet Count Result 244 K/mm3 (150-420); Red Blood Count 4.48 M/mm3 (4.20-5.40); Red Cell Distribution Width 12.8 % (11.6-14.4); White Blood Count 3.9 K/mm3 (4.8-10.8)
[2024-06-02 08:31] LABS: Band Neutrophils Percent 0 % (0-6); Eosinophils Absolute Manual 0.11 K/mm3 (0.02-0.50); Eosinophils Percent Manual 3 % (1-6); Lymphocytes Absolute Manual 0.89 K/mm3 (1.1-4.5); Lymphocytes Percent Manual 23 % (18-44); Metamyelocytes Percent 1 %; Monocytes Percent Manual 13 % (3-9); Neutrophils Absolute Manual 2.34 K/mm3 (1.7-7.2); Neutrophils Percent Manual 60 % (46-73); Platelet Estimate Adequate (Adequate); Total Cells Counted 100
[2024-06-02 09:11] LABS: Erythrocyte Sedimentation Rate 33 mm/hr (0-20)
[2024-06-02 09:15] LABS: Alanine Aminotransferase 13 U/L (14-59); Albumin Level 3.5 g/dL (3.4-5.0); Alkaline Phosphatase 114 U/L (46-116); Anion Gap 8 mmol/L (4-12); Aspartate Amino Transferase 25 U/L (15-37); Bilirubin,Total 0.5 mg/dL (0.00-1.00); Blood Urea Nitrogen 17 mg/dL (7-18); CRP 1.2 mg/dL (0.0-0.9); Calcium 9.6 mg/dL (8.5-10.1); Carbon Dioxide 29 mmol/L (21-32); Chloride 104 mmol/L (98-108); Estimated Glomerular Filt Rate 58; Glucose 111 mg/dL (70-99); Osmolality Calculated 294 mOsm/kg (285-295); Potassium 4.5 mmol/L (3.5-5.1); Sodium 141 mmol/L (136-145)
== END 2024-06-02 07:58 | disposition home or self-care (01) ==
LOC: CHSLAB 07:59
PROVIDERS: PCP Nurse Practitioner; Visit Provider Internal Medicine Rheumatology
DX: Z79.899 Other long term (current) drug therapy (principal)
CPT/HCPCS: 36415; 80053; 85025; 85652; 86140